=== PATIENT | female | born 1980 | race Caucasian/White ===

== ENCOUNTER 2018-06-24 07:59 | Emergency (ER) | payer BC, OTHER ==
[2018-06-24] MEDS ORDERED: Acetaminophen 500 MG TAB ONE (08:38)
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
[2018-06-24 09:26] LABS: Pregnancy Test - Urine (BHCG) Negative (Negative); Pregu Control Background? CLEAR/WHITE (CLR/WHITE); Pregu Control Bar Appear? YES (CONTROL BAR); Specific Gravity 1.007 (1.002-1.036)
[2018-06-24] MEDS ORDERED: Ketorolac Tromethamine 60 MG/2 ML VIAL ONE (09:47)
== END 2018-06-24 10:09 | disposition home or self-care (01) ==
LOC: ERS 07:59
DX: M54.2 Cervicalgia (principal); R51 Headache; F32.9 Major depressive disorder, single episode, unspecified; Z79.899 Other long term (current) drug therapy; V43.52XA Car driver injured in collision with other type car in traffic accident, initial encounter
CPT/HCPCS: 70450; 81025; 96372; J1885

== ENCOUNTER 2025-04-07 08:07 | Outpatient (CLI) | payer BC | END 2025-04-07 08:08 | disposition home or self-care (01) | LOC: BICMAMMO 08:07 | PROVIDERS: ATTEND Obstetrics & Gynecology | DX: Z12.31 Encounter for screening mammogram for malignant neoplasm of breast (principal) | CPT/HCPCS: 77063; 77067 ==